=== PATIENT | female | born 1935 | race Caucasian/White ===

== ENCOUNTER 2017-08-10 13:51 | Inpatient (IN) | payer MEDICARE ==
[~2017-08-10] VITALS: Ht 158.8 cm; Wt 64.3 kg
[~2017-08-10 13:51] MED LIST: ASPI81 PO; CALTTAB PO; COZA100T PO; CRANCAP11 PO; ESCI20TA PO; ESTR42.5V PV; FISH1000 PO; GARL500T PO; GLUC500C3 PO; GLUCTAB47 PO; IBUP1TAB7 PO; KONS520C PO; OMEP20TA39 PO; SIMV20 PO; TAB-TAB PO; TOPR50TA PO; VITA-13 PO
[2017-08-10 13:59] VITALS: BP 124/68; PULSE 80; RESP 18; TEMP 98.9; O2SAT 98
[2017-08-10] MEDS ORDERED: CEPH-460 PO (14:14)
[2017-08-10] MEDS ORDERED: METO50TA PO (14:19)
[2017-08-10] MEDS ORDERED: LACTCAP8 PO (14:19)
[2017-08-10] MEDS ORDERED: ASPI81CH6 CHEW (14:19)
[2017-08-10] MEDS ORDERED: GLUC500T4 PO (14:19)
[2017-08-10] MEDS ORDERED: LOSA50TA PO (14:19)
[2017-08-10] MEDS ORDERED: FISHCAP4 PO (14:19)
[2017-08-10] MEDS ORDERED: VITA500T83 PO (14:19)
[2017-08-10] MEDS ORDERED: RED1CAP4 PO (14:19)
[2017-08-10] MEDS ORDERED: RANI150T PO (14:19)
[2017-08-10] MEDS ORDERED: ESCI20TA PO (14:19)
[2017-08-10] MEDS ORDERED: AZTREONAM INJ 2,000 MG in SODIUM CHLORIDE 0.9% INJ 100 ML IV STA (14:33)
[2017-08-10] MEDS ORDERED: VANCOMYCIN INJ 900 MG in SODIUM CHLOR 0.9% 250 ML INJ 250 ML IV STA (14:33)
[2017-08-10] MEDS ORDERED: metroNIDAZOLE 500 MG INJ 100 ML IV STA (14:33)
--- NOTE | 2017-08-10 14:37 | PD ---
HPI Chief Complaint: Edema Time Seen by Provider: 14:24 Travel History International Travel<30 days: No Contact w/Intl Traveler<30days: No Traveled to known affect area: No History of Present Illness HPI This 82-year-old female is complaining of swelling and redness of the right leg. 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 She's had a chronic wound at the site of the surgery. She has been going to the wound care center. Over the last couple of days she developed redness the lower leg around the site of the surgery. She had some fever yesterday but not today. She developed a blister yesterday she has no history of DVT. She was started on Keflex yesterday and it has not helped PFSH Past Medical History Hx Anticoagulant Therapy: Yes (BABY ASA DAILY) Autoimmune Disease: Yes (OSTEOPENIA) Anxiety: Yes Cancer: Yes (SKIN, MELANOMA FOOT) Cardiovascular Problems: No High Cholesterol: Yes Cerebrovascular Accident: No Diminished Hearing: No Endocrine: No Gastrointestinal Disorders: Yes (GERD, CONSTIPATION) GERD: Yes Genitourinary: Yes (URINARY INCONTINENCE) Hepatitis: No Hiatal Hernia: No Hypertension: Yes Immune Disorder: No Musculoskeletal: Yes (ARTHRITIS, OSTEOPOROSIS) Neurologic: No Psychiatric: No Reproductive: No Respiratory: No Immunizations Current: Yes Thyroid Disease: No Influenza Vaccination: Yes PNEUMOCCOCAL Vaccine (Year): 2009 ?: Not Menopausal: Yes Past Surgical History Abdominal Surgery: No AICD: No Cardiac Surgery: No Ear Surgery: No Endocrine Surgery: No Eye Surgery: No Genitourinary Surgery: No Gynecologic Surgery: No Joint Replacement: No Pacemaker: No Thoracic Surgery: No Tonsillectomy: Yes Other Surgery: Yes (cyst breast removed ) Social History Alcohol Use: No Tobacco Use: No Substance Use: No Allergies-Medications (Allergen,Severity, Reaction): Coded Allergies: amoxicillin (Unverified Allergy, Unknown, 08/10/17) penicillin G (Unverified Allergy, Unknown, PT UNSURE OF REACTION, 08/10/17) Reported Meds & Prescriptions Reported Meds & Active Scripts Active Ibuprofen 800 Mg Tab 800 Mg PO Q8H PRN Reported Pred Forte Opth 1% (Prednisolone Acetate Opth 1%) 1% Susp 1 Drop LEFT EYE QID Bromsite (Bromfenac Sodium (Ophth)) 0.075 % Velasquez 1 Drop LEFT EYE BID Glucosamine-Chondroitin 500-400 Mg Tab 1 Tab PO DAILY Vitamin C ER (Ascorbic Acid) 500 Mg Ok 1,000 Mg PO DAILY Red Yeast Rice (Red Yeast Rice Extract) 600 Mg Cap 1 Tab PO DAILY Probiotic (Lactobacillus Acidophilus) 10 Billion Cell Cap 1 Cap PO DAILY Fish Oil + D3 (Fish Oil-Cholecalciferol) 1,200-1,000 Mg-Unit Cap 1 Cap PO DAILY Aspirin Low Dose (Aspirin) 81 Mg Chew 81 Mg CHEW DAILY Ranitidine (Ranitidine HCl) 150 Mg Tab 150 Mg PO BID Metoprolol Tartrate 50 Mg Tab 50 Mg PO BID Losartan (Losartan Potassium) 50 Mg Tab 50 Mg PO DAILY Escitalopram (Escitalopram Oxalate) 20 Mg Tab 20 Mg PO DAILY Keflex (Cephalexin) 500 Mg Cap 500 Mg PO Q12H Review of Systems General / Constitutional: Positive: Fever, Chills Eyes: No: Diploplia, Blurred Vision HENT: No: Headaches, Vertigo Cardiovascular: No: Chest Pain or Discomfort, Palpitations Respiratory: No: Cough, Shortness of Breath Gastrointestinal: No: Nausea, Vomiting Genitourinary: No: Urgency, Frequency Musculoskeletal: Positive: Edema, No: Myalgias Skin: Positive Rash Neurologic: No: Weakness, Dizziness Psychiatric: No: Anxiety Endocrine: No: Heat Intolerance Hematologic/Lymphatic: No: Easy Bruising Physical Exam Narrative GENERAL: Well-developed female SKIN: Focused skin assessment warm/dry. HEAD: Atraumatic. Normocephalic. EYES: Pupils equal and round. No scleral icterus. No injection or drainage. ENT: No nasal bleeding or discharge. Mucous membranes pink and moist. NECK: Trachea midline. No JVD. CARDIOVASCULAR: Regular rate and rhythm. No murmur appreciated. RESPIRATORY: No accessory muscle use. Clear to auscultation. Breath sounds equal bilaterally. GASTROINTESTINAL: Abdomen soft, non-tender, nondistended. Hepatic and splenic margins not palpable. MUSCULOSKELETAL: Examination of the right lower leg shows erythema extending about [facility] up the lower extremity. There is an area of blistering on the medial aspect of the foot. There is a surgical wound on the lateral aspect of the right leg NEUROLOGICAL: Awake and alert. No obvious cranial nerve deficits. Motor grossly within normal limits. Normal speech. PSYCHIATRIC: Appropriate mood and affect; insight and judgment normal. Data Data Last Documented VS Vital Signs Date Time Temp Pulse Resp B/P (MAP) Pulse Ox O2 Delivery O2 Flow Rate FiO2 08/10/17 14:58 77 18 112/59 (76) 97 Room Air 08/10/17 13:59 98.9 Orders Orders Sepsis Workup Initiated (08/10/17 ) Complete Blood Count With Diff (08/10/17 14:33) Comprehensive Metabolic Panel (08/10/17 14:33) Lactic Acid Sepsis Protocol (08/10/17 14:33) Urinalysis - C+S If Indicated (08/10/17 14:33) Blood Culture (08/10/17 14:33) Blood Glucose (08/10/17 14:33) Ecg Monitoring (08/10/17 14:33) Iv Access Insert/Monitor (08/10/17 14:33) Oximetry (08/10/17 14:33) Oxygen Administration (08/10/17 14:33) Aztreonam Inj (Azactam Inj) (08/10/17 14:33) Metronidazole 500 Mg Inj (Flagyl 500 Mg (08/10/17 14:33) Vancomycin Inj (Vancomycin Inj) (08/10/17 14:33) Us Leg Venous Doppler (08/10/17 14:37) Sodium Chlor 0.9% 1000 Ml Inj (Ns 1000 M (08/10/17 15:30) Potassium Chloride (Kcl) (08/10/17 15:45) Labs Laboratory Tests Test 08/10/17 14:35 White Blood Count 10.3 TH/MM3 Red Blood Count 3.61 MIL/MM3 Hemoglobin 10.4 GM/DL Hematocrit 31.9 % Mean Corpuscular Volume 88.5 FL Mean Corpuscular Hemoglobin 28.7 PG Mean Corpuscular Hemoglobin Concent 32.5 % Red Cell Distribution Width 14.0 % Platelet Count 214 TH/MM3 Mean Platelet Volume 9.6 FL Neutrophils (%) (Auto) 90.5 % Lymphocytes (%) (Auto) 4.0 % Monocytes (%) (Auto) 4.5 % Eosinophils (%) (Auto) 0.8 % Basophils (%) (Auto) 0.2 % Neutrophils # (Auto) 9.3 TH/MM3 Lymphocytes # (Auto) 0.4 TH/MM3 Monocytes # (Auto) 0.5 TH/MM3 Eosinophils # (Auto) 0.1 TH/MM3 Basophils # (Auto) 0.0 TH/MM3 CBC Comment AUTO DIFF Blood Urea Nitrogen 25 MG/DL Creatinine 0.88 MG/DL Random Glucose 127 MG/DL Total Protein 6.9 GM/DL Albumin 2.5 GM/DL Calcium Level 8.5 MG/DL Alkaline Phosphatase 74 U/L Aspartate Amino Transf (AST/SGOT) 19 U/L Alanine Aminotransferase (ALT/SGPT) 22 U/L Total Bilirubin 0.5 MG/DL Sodium Level 131 MEQ/L Potassium Level 3.4 MEQ/L Chloride Level 97 MEQ/L Carbon Dioxide Level 27.2 MEQ/L Anion Gap 7 MEQ/L Estimat Glomerular Filtration Rate 62 ML/MIN Lactic Acid Level 1.6 mmol/L [facility] Medical Decision Making Medical Screen Exam Complete: Yes Emergency Medical Condition: Yes Medical Record Reviewed: Yes Differential Diagnosis Differential includes cellulitis, DVT Narrative Course Appearance is consistent with cellulitis. Ultrasound will be done to rule out DVT. Going to initiate antibiotics. She indicates an allergy to amoxicillin and penicillin and given aztreonam, Flagyl and vancomycin. She has been started on Keflex yesterday and it progressed in spite of the Keflex. Ultrasound is read as negative for DVT. Her white count is 10,000. Her lactate is normal. She is an outpatient treatment failure Diagnosis Primary Impression: Cellulitis of right leg Admitting Information Admitting Physician Requests: Admit Cy Welch MD Aug 10, 2017 14:37
[2017-08-10 14:58] VITALS: BP 112/59; PULSE 77; RESP 18; O2SAT 97
[2017-08-10 15:01] LABS: CHLORIDE 97 MEQ/L (98-107); SODIUM (NA) 131 MEQ/L (136-145)
[2017-08-10 15:04] LABS: CALCIUM 8.5 MG/DL (8.5-10.1)
[2017-08-10 15:05] LABS: ALBUMIN 2.5 GM/DL (3.4-5.0); BICARBONATE 27.2 MEQ/L (21.0-32.0); BLOOD UREA NITROGEN 25 MG/DL (7-18); GLUCOSE,RANDOM 127 MG/DL (74-106)
[2017-08-10 15:08] LABS: ALT (GPT) 22 U/L (10-53); AST (GOT) 19 U/L (15-37); CREATININE 0.88 MG/DL (0.50-1.00); GLOMERULAR FILTRATION RATE 62 ML/MIN (>89)
--- NOTE | 2017-08-10 15:08 | RADRPT ---
EXAM DATE/TIME: 08/10/2017 14:43 [place] COMPARISON: No previous studies available for comparison. INDICATIONS : Right leg pain and redness. MEDICAL HISTORY : Hypercholesterolemia. Hypertension. Gastroesophageal reflux disease. Osteoporosis. UTI. Diabetes. Skin cancer. MRSA. Osteopenia. SURGICAL HISTORY : Tonsillectomy. ENCOUNTER: Initial ACUITY: 4 - 6 days PAIN SCORE: 5/10 LOCATION: Right leg. TECHNIQUE: Venous ultrasound of the leg was performed from the inguinal ligament to the proximal calf. Real-manjinder e, color Doppler and spectral tracing, compression and augmentation techniques were used. FINDINGS: There is normal compressibility of the deep venous system from the inguinal region to the proximal ca lf. No echogenic clot is seen in the lumen of the common femoral, femoral, popliteal, and posterior tibial veins. There is a normal response of the venous system to proximal and distal augmentation an d respiration. CONCLUSION: 1. Negative for deep venous thrombosis. Som Boyd MD on August 10, 2017 at 15:07 Board Certified Radiologist. This report was verified electronically.
[2017-08-10 15:09] LABS: TOTAL BILIRUBIN ADULT 0.5 MG/DL (0.2-1.0); TOTAL PROTEIN 6.9 GM/DL (6.4-8.2)
[2017-08-10 15:11] LABS: ALKALINE PHOSPHATASE 74 U/L (45-117)
[2017-08-10] MEDS ORDERED: PRED1SUS LEFT EYE (15:35)
[2017-08-10] MEDS ORDERED: [UNRECOGNIZED DRUG - CODE] LEFT EYE (15:35)
[2017-08-10] MEDS ORDERED: POTASSIUM CHLORIDE 20 MEQ CONTROLLED RELEASE TAB PO ONE (15:45)
[2017-08-10] MEDS: SODIUM CHLOR 0.9% 1000 ML INJ 1,000 ML IV SCH (15:56)
[2017-08-10 16:00] LABS: AUTOMATED NEUTROPHIL # 9.3 TH/MM3 (1.8-7.7); BASOPHIL % 0.2 % (0.0-2.0); EOSINOPHIL # 0.1 TH/MM3 (0-0.4); EOSINOPHIL % 0.8 % (0.0-4.0); HEMATOCRIT 31.9 % (35.0-46.0); HEMOGLOBIN 10.4 GM/DL (11.6-15.3); LYMPHOCYTE # 0.4 TH/MM3 (1.0-4.8); MEAN CELL VOLUME 88.5 FL (80.0-100.0); MEAN CORPUSCULAR HEMOGLOBIN 28.7 PG (27.0-34.0); MEAN CORPUSCULAR HGB CONC 32.5 % (32.0-36.0); MEAN PLATELET VOLUME 9.6 FL (7.0-11.0); MONO % 4.5 % (0.0-8.0); MONOCYTE # 0.5 TH/MM3 (0-0.9); NEUT % 90.5 % (16.0-70.0); PLATELET COUNT 214 TH/MM3 (150-450); RED BLOOD COUNT 3.61 MIL/MM3 (4.00-5.30); WHITE BLOOD COUNT 10.3 TH/MM3 (4.0-11.0)
[2017-08-10 16:38] VITALS: BP 107/53; PULSE 70; RESP 18; O2SAT 97
[2017-08-10] MEDS ORDERED: MAGNESIUM HYDROXIDE SUSP 30 ML CUP PO PRN (16:45)
[2017-08-10] MEDS ORDERED: ONDANSETRON HCL 4 MG/2 ML VIAL IVP PRN (16:45)
[2017-08-10] MEDS ORDERED: SODIUM CHLORIDE 0.9% FLUSH 10 ML FLUSH IV FLUSH PRN (16:45)
[2017-08-10] MEDS ORDERED: Vancomycin Consult Pharmacy 1 EA OTHER SCH (16:45)
[2017-08-10] MEDS ORDERED: NALOXONE HCL 0.4 MG/ML AMP IV PUSH PRN (16:45)
[2017-08-10] MEDS ORDERED: ACETAMINOPHEN 325 MG TAB PO PRN (16:45)
--- NOTE | 2017-08-10 16:51 | HHI.HP ---
[facility] Service [place] [facility] Primary Care Physician Jose Alberto Knight MD Admission Diagnosis CELLULITIS R LEG Diagnoses: Chief Complaint: Right leg pain and swelling Travel History International Travel<30 Days: No Contact w/Intl Traveler <30 Da: No Traveled to Known Affected Are: No History of Present Illness Patient is an 82-year-old female with an acute episode of right leg pain and swelling which was severe enough to come to the emergency room. The pain occurred 2 days ago and she called her primary care doctor and did receive a prescription for Keflex but noted that increasing pain continued and she developed a bullous lesion in the medial ankle. She has no history of DVTs ultrasounds here been negative. Patient has been in wound care clinic with a right lateral shallow wound that appears to be healing quite well otherwise. The pain is intense and improved with elevation. She reports fevers and chills at home. Here she has been hypotensive. Patient is admitted for acute right lower show any infection with failed outpatient therapy Review of Systems Constitutional: COMPLAINS OF: Fever, Chills, DENIES: Diaphoretic episodes, Fatigue, Weight gain, Weight loss, Dizziness, Change in appetite, Night Sweats Endocrine: DENIES: Abnorml menstrual pattern, Heat/cold intolerance, Polydipsia , Polyuria, Polyphagia Eyes: DENIES: Blurred vision, Diplopia, Eye inflammation, Eye pain, Vision loss , Photosensitivity, Double Vision Ears, nose, mouth, throat: DENIES: Tinnitus, Hearing loss, Vertigo, Nasal discharge, Oral lesions, Throat pain, Hoarseness, Ear Pain, Running Nose, Epistaxis, Sinus Pain, Toothache, Odynophagia Respiratory: DENIES: Apneas, Cough, Snoring, Wheezing, Hemoptysis, Sputum production, Shortness of breath Cardiovascular: DENIES: Chest pain, Palpitations, Syncope, Dyspnea on Exertion , PND, Lower Extremity Edema, Orthopnea, Claudication Gastrointestinal: DENIES: Abdominal pain, Black stools, Bloody stools, Constipation, Diarrhea, Nausea, Vomiting, Difficulty Swallowing, Anorexia Genitourinary: DENIES: Abnormal vaginal bleeding, Dysmenorrhea, Dyspareunia, Sexual dysfunction, Urinary frequency, Urinary incontinence, Urgency, Hematuria , Dysuria, Nocturia, Vaginal discharge Musculoskeletal: COMPLAINS OF: Joint pain Integumentary: DENIES: Abnormal pigmentation, Pruritus, Rash, Nail changes, Breast masses, Breast skin changes, Nipple discharge Hematologic/lymphatic: DENIES: Bruising, Lymphadenopathy Immunologic/allergic: DENIES: Eczema, Urticaria Neurologic: DENIES: Abnormal gait, Headache, Localized weakness, Paresthesias, Seizures, Speech Problems, Tremor, Poor Balance Psychiatric: COMPLAINS OF: Anxiety, DENIES: Confusion, Mood changes, Depression , Hallucinations, Agitation, Suicidal Ideation, Homicidal Ideation, Delusions Except as stated in HPI: all other systems reviewed are Neg Past Family Social History Past Medical History Skin cancer removed 3 months ago Hypertension Anxiety GERD Constipation Hyperlipidemia Past Surgical History Skin cancer removed 3 months ago Breast surgery Reported Medications Reviewed in the EMR Allergies: Coded Allergies: amoxicillin (Unverified Allergy, Unknown, 08/10/17) penicillin G (Unverified Allergy, Unknown, PT UNSURE OF REACTION, 08/10/17) Active Ordered Medications Reviewed in the EMR Family History Mother from a stroke at 65, father from gastrointestinal troubles Social History Lives with her , no tobacco or alcohol dependency Physical Exam Vital Signs Vital Signs Date Time Temp Pulse Resp B/P (MAP) Pulse Ox O2 Delivery O2 Flow Rate FiO2 08/10/17 16:38 70 18 107/53 (71) 97 Room Air 08/10/17 14:58 77 18 112/59 (76) 97 Room Air 08/10/17 14:58 97 Room Air 08/10/17 13:59 98.9 80 18 124/68 (86) 98 Physical Exam GENERAL: This is a well-nourished, well-developed patient, in no apparent distress. SKIN: No rashes, ecchymoses or lesions. Cool and dry. HEAD: Atraumatic. Normocephalic. No temporal or scalp tenderness. EYES: Pupils equal round and reactive. Extraocular motions intact. No scleral icterus. No injection or drainage. ENT: Nose without bleeding, purulent drainage or septal hematoma. Throat without erythema, tonsillar hypertrophy or exudate. Uvula midline. Airway patent. NECK: Trachea midline. No JVD or lymphadenopathy. Supple, nontender, no meningeal signs. CARDIOVASCULAR: Regular rate and rhythm without murmurs, gallops, or rubs. RESPIRATORY: Clear to auscultation. Breath sounds equal bilaterally. No wheezes , rales, or rhonchi. GASTROINTESTINAL: Abdomen soft, non-tender, nondistended. No hepato-splenomegaly , or palpable masses. No guarding. MUSCULOSKELETAL: Right lower extremity is extremely edematous and tender with shallow lateral quarter-sized ulcer with clean edges and clean base, the medial malleoli has a large half-dollar size bulla with surrounding erythema. Other 3 Extremities without clubbing, cyanosis, or edema. No joint tenderness, effusion , or edema noted. No calf tenderness. Negative Homans sign bilaterally. NEUROLOGICAL: Awake and alert. Cranial nerves II through XII intact. Motor and sensory grossly within normal limits. Five out of 5 muscle strength in all muscle groups. Normal speech. Laboratory Laboratory Tests Test 08/10/17 14:35 White Blood Count 10.3 Red Blood Count 3.61 Hemoglobin 10.4 Hematocrit 31.9 Mean Corpuscular Volume 88.5 Mean Corpuscular Hemoglobin 28.7 Mean Corpuscular Hemoglobin Concent 32.5 Red Cell Distribution Width 14.0 Platelet Count 214 Mean Platelet Volume 9.6 Neutrophils (%) (Auto) 90.5 Lymphocytes (%) (Auto) 4.0 Monocytes (%) (Auto) 4.5 Eosinophils (%) (Auto) 0.8 Basophils (%) (Auto) 0.2 Neutrophils # (Auto) 9.3 Lymphocytes # (Auto) 0.4 Monocytes # (Auto) 0.5 Eosinophils # (Auto) 0.1 Basophils # (Auto) 0.0 CBC Comment AUTO DIFF Blood Urea Nitrogen 25 Creatinine 0.88 Random Glucose 127 Total Protein 6.9 Albumin 2.5 Calcium Level 8.5 Alkaline Phosphatase 74 Aspartate Amino Transf (AST/SGOT) 19 Alanine Aminotransferase (ALT/SGPT) 22 Total Bilirubin 0.5 Sodium Level 131 Potassium Level 3.4 Chloride Level 97 Carbon Dioxide Level 27.2 Anion Gap 7 Estimat Glomerular Filtration Rate 62 Lactic Acid Level 1.6 Date/Time Source Procedure Growth Status 08/10/17 14:43 Blood Peripheral Aerobic Blood Culture Pending Received 08/10/17 14:43 Blood Peripheral Anaerobic Blood Culture Pending Received Result Diagram: 08/10/17 1435 08/10/17 1435 Imaging Last Impressions Lower Extremity Ultrasound 08/10/17 1437 Signed Impressions: Service Date/Time: Thursday, August 10, 2017 14:43 - CONCLUSION: 1. Negative for deep venous thrombosis. Som Boyd MD Caprinamanda VTE Risk Assessment Caprini VTE Risk Assessment: Mod/High Risk (score >= 2) Caprini Risk Assessment Model Point Value = 1 Point Value = 2 Point Value = 3 Point Value = 5 Age 41-60 Minor surgery BMI > 25 kg/m2 Swollen legs Varicose veins or History of unexplained or recurrent spontaneous Oral contraceptives or hormone replacement Sepsis (< 1 month) Serious lung disease, including pneumonia (< 1 month) Abnormal pulmonary function Acute myocardial infarction Congestive heart failure (< 1 month) History of inflammatory bowel disease Medical patient at bed rest Age 61-74 Arthroscopic surgery Major open surgery (> 45 min) Laparoscopic surgery (> 45 min) Malignancy Confined to bed (> 72 hours) Immobilizing plaster cast Central venous access Age >= 75 History of VTE Family history of VTE Factor V Leiden Prothrombin [id number] Lupus anticoagulant Anticardiolipin antibodies Elevated serum homocysteine Heparin-induced thrombocytopenia Other congenital or acquired thrombophilia Stroke (< 1 month) Elective arthroplasty Hip, pelvis, or leg fracture Acute spinal cord injury (< 1 month) Prophylaxis Regimen Total Risk Factor Score Risk Level Prophylaxis Regimen 0-1 Low Early ambulation 2 Moderate Order ONE of the following: *Sequential Compression Device (SCD) *Heparin 5000 units SQ BID 3-4 Higher Order ONE of the following medications: *Heparin 5000 units SQ TID *Enoxaparin/Lovenox 40 mg SQ daily (WT < 150 kg, CrCl > 30 mL/min) *Enoxaparin/Lovenox 30 mg SQ daily (WT < 150 kg, CrCl > 10-29 mL/min) *Enoxaparin/Lovenox 30 mg SQ BID (WT < 150 kg, CrCl > 30 mL/min) AND/OR *Sequential Compression Device (SCD) 5 or more Highest Order ONE of the following medications: *Heparin 5000 units SQ TID (Preferred with Epidurals) *Enoxaparin/Lovenox 40 mg SQ daily (WT < 150 kg, CrCl > 30 mL/min) *Enoxaparin/Lovenox 30 mg SQ daily (WT < 150 kg, CrCl > 10-29 mL/min) *Enoxaparin/Lovenox 30 mg SQ BID (WT < 150 kg, CrCl > 30 mL/min) AND *Sequential Compression Device (SCD) Assessment and Plan Problem List: (1) HTN (hypertension) ICD Code: I10 - Essential (primary) hypertension Plan: Patient has been hypotensive and we will resume her medications when her blood pressure has improved (2) Cellulitis of right leg ICD Code: L03.115 - Cellulitis of right lower limb Status: Acute Plan: Etiology unclear, patient has failed outpatient therapy at this point will need to be admitted for IV antibiotics for severe lower extremity infection. She was hypotensive and febrile at home We'll continue with IV is active and add vancomycin, podiatry consult pending Physician Certification 2 Midnight Certification Type: Admission for Inpatient Services Order for Inpatient Services The services are ordered in accordance with Medicare regulations or non- Medicare payer requirements, as applicable. In the case of services not specified as inpatient-only, they are appropriately provided as inpatient services in accordance with the 2-midnight benchmark. Estimated LOS (days): 3 3 days is the estimated time the patient will need to remain in the hospital, assuming treatment plan goals are met and no additional complications. Post-Hospital Plan: Home Hamida Corado MD Aug 10, 2017 16:51
[2017-08-10] MEDS ORDERED: POTASSIUM CHLORIDE 10 MEQ CONTROLLED RELEASE TAB PO ONE (17:00)
[2017-08-10 17:55] VITALS: BP 119/59; PULSE 99; RESP 20; TEMP 99; O2SAT 97
--- NOTE | 2017-08-10 19:32 | PD.CONS ---
History of Present Illness Service Podiatry Consult Requested By Reason for Consult Right ankle infection Primary Care Physician Jose Alberto Knight MD Diagnoses: History of Present Illness Patient is an 82-year-old female with an acute episode of right leg pain and swelling. She was given keflex and it continued to digress, with blister on the inside of the ankle forming. She had skin cancer removed with a wound to the lateral calf that did not heal yet, otherwise no trauma to the leg is noted. Past Family Social History Allergies: Coded Allergies: amoxicillin (Unverified Allergy, Unknown, 08/10/17) penicillin G (Unverified Allergy, Unknown, PT UNSURE OF REACTION, 08/10/17) Past Medical History Skin cancer Hypertension Anxiety GERD Constipation Hyperlipidemia Past Surgical History Skin cancer removed 3 months ago Breast surgery Active Ordered Medications Current Medications Medications (Trade) Dose Ordered Sig/Brijesh Route Start Time Stop Time Status Last Admin Sodium Chloride 1,000 ml @ 100 mls/hr Q10H IV 08/10/17 15:30 08/10/17 15:56 (NS Flush) 2 ml UNSCH PRN IV FLUSH 08/10/17 16:45 (NS Flush) 2 ml BID IV FLUSH 08/10/17 21:00 (Tylenol) 650 mg Q4H PRN PO 08/10/17 16:45 (Zofran Inj) 4 mg Q6H PRN IVP 08/10/17 16:45 (Narcan Inj) 0.4 mg UNSCH PRN IV PUSH 08/10/17 16:45 (Milk Of Magnesia Liq) 30 ml Q12H PRN PO 08/10/17 16:45 Aztreonam 1000 mg/ Sodium Chloride 100 ml @ 200 mls/hr Q6HR IV 08/11/17 00:00 Pharmacy Profile Note 0 ml @ 0 mls/hr UNSCH OTHER 08/10/17 16:45 Vancomycin HCl 1000 mg/Sodium Chloride 250 ml @ 250 mls/hr DAILY@1600 IV 08/11/17 16:00 (Lexapro) 20 mg DAILY PO 08/11/17 09:00 (Lactinex) 1 tab DAILY PO 08/11/17 09:00 (Cozaar) 50 mg DAILY PO 08/11/17 09:00 (Lopressor) 50 mg BID PO 08/11/17 09:00 (Pred Forte 1% Opth Susp) 1 drop QID LEFT EYE 08/10/17 18:00 Patient Own Medication PT OWN MED: (Bromfe... BID LEFT EYE 08/10/17 21:00 Future Hold (Pepcid) 10 mg BID PO 08/10/17 21:00 (Lovenox Inj) 40 mg Q24H SQ 08/10/17 18:00 ([place] 7.5-325 Mg) 1 tab Q6H PRN PO 08/10/17 17:00 (Miralax) 17 gm DAILY PO 08/11/17 09:00 Miscellaneous Information SPECIFIC LAB TO BE DRAWN:VANCO TROUGH DATE TO... ONCE ONCE .XX 08/13/17 15:45 08/13/17 15:46 Family History Mother from a stroke at 65, father from gastrointestinal troubles Social History Lives with her , no tobacco or alcohol dependency Physical Exam Vital Signs Vital Signs Date Time Temp Pulse Resp B/P (MAP) Pulse Ox O2 Delivery O2 Flow Rate FiO2 08/10/17 17:55 99.0 99 20 119/59 (79) 97 08/10/17 17:32 08/10/17 16:38 70 18 107/53 (71) 97 Room Air 08/10/17 14:58 77 18 112/59 (76) 97 Room Air 08/10/17 14:58 97 Room Air 08/10/17 13:59 98.9 80 18 124/68 (86) 98 Physical Exam GENERAL: This is a well-nourished, well-developed patient, in no apparent distress. Right lateral ankle with ulceration apparently from skin cancer removal with erythema and edema from rearfoot and ankle to mid-calf. No purulence from this wound, however, there is bulla noted to medial R ankle at medial achilles tendon insertion area, that appears to be fluid-filled and not purulent material. Tenderness present to calf. Increased skin temperature. No ascending erythema noted. Neurovascularly intact RLE. Laboratory Laboratory Tests Test 08/10/17 14:35 White Blood Count 10.3 Red Blood Count 3.61 Hemoglobin 10.4 Hematocrit 31.9 Mean Corpuscular Volume 88.5 Mean Corpuscular Hemoglobin 28.7 Mean Corpuscular Hemoglobin Concent 32.5 Red Cell Distribution Width 14.0 Platelet Count 214 Mean Platelet Volume 9.6 Neutrophils (%) (Auto) 90.5 Lymphocytes (%) (Auto) 4.0 Monocytes (%) (Auto) 4.5 Eosinophils (%) (Auto) 0.8 Basophils (%) (Auto) 0.2 Neutrophils # (Auto) 9.3 Lymphocytes # (Auto) 0.4 Monocytes # (Auto) 0.5 Eosinophils # (Auto) 0.1 Basophils # (Auto) 0.0 CBC Comment AUTO DIFF Differential Comment AUTO DIFF CONFIRMED Blood Urea Nitrogen 25 Creatinine 0.88 Random Glucose 127 Total Protein 6.9 Albumin 2.5 Calcium Level 8.5 Alkaline Phosphatase 74 Aspartate Amino Transf (AST/SGOT) 19 Alanine Aminotransferase (ALT/SGPT) 22 Total Bilirubin 0.5 Sodium Level 131 Potassium Level 3.4 Chloride Level 97 Carbon Dioxide Level 27.2 Anion Gap 7 Estimat Glomerular Filtration Rate 62 Lactic Acid Level 1.6 Date/Time Source Procedure Growth Status 08/10/17 14:43 Blood Peripheral Aerobic Blood Culture Pending Received 08/10/17 14:43 Blood Peripheral Anaerobic Blood Culture Pending Received Result Diagram: 08/10/17 1435 08/10/17 1435 Imaging Ordering Xray and MRI of R ankle today. Last 72 hours Impressions Lower Extremity Ultrasound 08/10/17 1437 Signed Impressions: Service Date/Time: Thursday, August 10, 2017 14:43 - CONCLUSION: 1. Negative for deep venous thrombosis. Som Boyd MD Assessment and Plan Assessment and Plan Cellulitis right ankle. Patient consented to bedside incision and drainage. Medial ankle bulla addressed and incised with #15 blade and culture taken of drainage. Wound cleansed and compression bandage applied RLE. Await culture Right ankle to guide antibiotics. Ordering Xray and MRI Right ankle Indira Isabel DPM Aug 10, 2017 19:32
[2017-08-10 20:00] VITALS: BP 124/58; PULSE 107; RESP 16; TEMP 99.6; O2SAT 98
[2017-08-10] MEDS: ACETAMINOPHEN/HYDROcodone 325 MG/7.5 MG TAB PO PRN (20:14)
[2017-08-10] MEDS: FAMOTIDINE 20 MG TAB PO SCH (20:14)
[2017-08-10] MEDS: ENOXAPARIN SODIUM 40 MG/0.4 ML SYRINGE SQ SCH (20:15)
[2017-08-10] MEDS: SODIUM CHLORIDE 0.9% FLUSH 10 ML FLUSH IV FLUSH SCH (20:16)
[2017-08-10] MEDS: AZTREONAM INJ 1,000 MG in SODIUM CHLORIDE 0.9% INJ 100 ML IV SCH ×2 (20:16→23:46)
[2017-08-10] MEDS ORDERED: BROMFENAC SODIUM LEFT EYE SCH (21:00)
[2017-08-10 21:07] LABS: BILIRUBIN, URINE NEG (NEG); BLOOD, URINE SMALL (NEG); GLUCOSE,URINE NEG (NEG); KETONE, URINE NEG (NEG); NITRITE,URINE NEG (NEG); URINE LEUKOCYTE ESTERASE NEG (NEG)
[2017-08-10 21:22] LABS: URINE COLOR YELLOW (YELLW/STRAW)
[2017-08-10 21:23] LABS: RENAL EPITHELIAL CELLS 0-5 /hpf; SQUAMOUS EPITHELIAL CELL URINE 0-5 /hpf (0-5); WHITE BLOOD CELL CLUMPS FEW
[2017-08-10 21:24] LABS: BACTERIA, URINE OCC /hpf
[2017-08-10] MEDS: prednisoLONE ACETATE 1% OPHT SUSP 5 ML BTL LEFT EYE SCH (21:28)
--- NOTE | 2017-08-10 22:02 | RADRPT ---
EXAM DATE/TIME: 08/10/2017 20:15 [facility] COMPARISON: No previous studies available for comparison. INDICATIONS : Right ankle infection. MEDICAL HISTORY : Hypercholesterolemia. Hypertension. Gastroesophageal reflux disease. Ost eoporosis. Diabetes. Skin cancer. Osteopenia. SURGICAL HISTORY : Tonsillectomy. ENCOUNTER: Initial ACUITY: 4 - 6 days PAIN SCORE: 6/10 LOCATION: Right ankle. FINDINGS: Diffuse soft tissue swelling in the ankle. Lucencies noted in the talus posteriorly. The mass structu res are intact. No acute fracture. CONCLUSION: 1. Diffuse soft tissue swelling with focal lucencies in the posterior talus which may reflect focal e rosive change. Ike Lugo MD on August 10, 2017 at 21:59 Board Certified Radiologist. This report was verified electronically.
[2017-08-11] VITALS: BP 118/60; PULSE 118; RESP 18; TEMP 99.1; O2SAT 93
[2017-08-11] MEDS ORDERED: ACETAMINOPHEN/HYDROcodone 325 MG/7.5 MG TAB PO ONE
[2017-08-11] MEDS ORDERED: AZTREONAM INJ 1,000 MG in SODIUM CHLORIDE 0.9% INJ 100 ML IV SCH ×2
[2017-08-11] MEDS ORDERED: FAMOTIDINE 20 MG TAB PO ONE (06:00)
[2017-08-11] MEDS: ACETAMINOPHEN/HYDROcodone 325 MG/7.5 MG TAB PO PRN ×2 (06:19→18:40)
[2017-08-11] MEDS: AZTREONAM INJ 1,000 MG in SODIUM CHLORIDE 0.9% INJ 100 ML IV SCH ×3 (06:19→17:42)
[2017-08-11] MEDS: SODIUM CHLOR 0.9% 1000 ML INJ 1,000 ML IV SCH ×3 (06:20→20:55)
[2017-08-11 07:52] LABS: AUTOMATED NEUTROPHIL # 9.4 TH/MM3 (1.8-7.7); BASOPHIL % 0.4 % (0.0-2.0); EOSINOPHIL # 0.1 TH/MM3 (0-0.4); EOSINOPHIL % 0.7 % (0.0-4.0); HEMATOCRIT 30.6 % (35.0-46.0); HEMOGLOBIN 10.5 GM/DL (11.6-15.3); LYMPHOCYTE # 0.6 TH/MM3 (1.0-4.8); MEAN CELL VOLUME 89.3 FL (80.0-100.0); MEAN CORPUSCULAR HEMOGLOBIN 30.5 PG (27.0-34.0); MEAN CORPUSCULAR HGB CONC 34.2 % (32.0-36.0); MEAN PLATELET VOLUME 9.5 FL (7.0-11.0); MONO % 4.9 % (0.0-8.0); MONOCYTE # 0.5 TH/MM3 (0-0.9); PLATELET COUNT 211 TH/MM3 (150-450); RED BLOOD COUNT 3.43 MIL/MM3 (4.00-5.30); RED CELL DISTRIBUTION WIDTH 14.6 % (11.6-17.2); WHITE BLOOD COUNT 10.6 TH/MM3 (4.0-11.0)
[2017-08-11 07:58] LABS: BICARBONATE 27.7 MEQ/L (21.0-32.0)
[2017-08-11 08:02] LABS: CREATININE 0.68 MG/DL (0.50-1.00)
[2017-08-11] MEDS: FAMOTIDINE 20 MG TAB PO SCH ×2 (08:47→20:54)
[2017-08-11] MEDS: ESCITALOPRAM OXALATE 20 MG TAB PO SCH (08:47)
[2017-08-11] MEDS: POLYETHYLENE GLYCOL 17 GM PKG PO SCH (08:47)
[2017-08-11] MEDS: SODIUM CHLORIDE 0.9% FLUSH 10 ML FLUSH IV FLUSH SCH ×2 (08:47→20:15)
[2017-08-11] MEDS: prednisoLONE ACETATE 1% OPHT SUSP 5 ML BTL LEFT EYE SCH ×4 (08:47→20:57)
[2017-08-11] MEDS: LACTOBACILLUS ACIDOPHILUS TAB PO SCH (08:47)
[2017-08-11] MEDS: METOPROLOL TARTRATE 50 MG TAB PO SCH ×2 (08:47→20:54)
[2017-08-11] MEDS: LOSARTAN 50 MG TAB PO SCH (08:47)
[2017-08-11] MEDS ORDERED: GADODIAMIDE PF 287 MG/ML 5 ML VIAL (for RAD MRI) IVCONTRAST ONE (11:00)
--- NOTE | 2017-08-11 11:48 | RADRPT ---
EXAM DATE/TIME: 08/11/2017 09:44 [facility] COMPARISON: ANKLE RIGHT COMPLETE ([id number]), August 10, 2017, 20:15. INDICATIONS : Celluitis CONTRAST: 11.5 cc Omniscan (gadodiamide) IV MEDICAL HISTORY : Hypercholesterolemia. Hypertension. Gastroesophageal reflux disease. SURGICAL HISTORY : Tonsillectomy. Cataracts Bilateral ENCOUNTER: Subsequent ACUITY: 2 day PAIN SCORE: 5/10 LOCATION: Right Ankle TECHNIQUE: Multiplanar, multisequence MRI examination was performed without contrast and after the intravenous a dministration of gadolinium. FINDINGS: There is prominent soft tissue swelling about the medial aspect of the ankle measuring up to 1.7 cm i n thickness. There is diffuse T2 prolongation and there is a cavity which measures 6 cm in length an d does not demonstrate enhancement, tracking within this area of soft tissue thickening. There is co nnection to the skin posterolateral. The appearance is characteristic of cellulitis with soft tissue abscess. There is also mild soft tissue swelling about the medial and posterior aspect of the ankle with homogeneous enhancement. In the posterior talus, there are 3 well-circumscribed cystic areas which extend to the posterior art icular facet and measure up to 9 mm in size. There is some peripheral enhancement in each of these c ystic areas, characteristic of subchondral cysts with associated inflammatory change. No effusion in the posterior articular facet. No signal abnormality seen in the marrow of the remainder of the oss eous structures of the ankle or hindfoot. No signal abnormalities in the medial or lateral tendons. CONCLUSION: 1. Cellulitis with soft tissue abscess on the medial side measuring in excess of 6 cm in superior/inf erior extent. There is also diffuse soft tissue inflammation about the posterior and medial soft tis sues. 2. Inflamed subchondral cysts in the calcaneus adjacent to the posterior articular facet. 3. No signal abnormalities to suggest osteomyelitis. Som Boyd MD on August 11, 2017 at 11:36 Board Certified Radiologist. This report was verified electronically.
[2017-08-11 12:47] VITALS: BP 119/72; PULSE 95; RESP 18; TEMP 96.6; O2SAT 94
--- NOTE | 2017-08-11 13:04 | HHI.PR ---
Subjective Remarks Patient seen in follow up for right foot infection better Objective Vitals Vital Signs Date Time Temp Pulse Resp B/P (MAP) Pulse Ox O2 Delivery O2 Flow Rate FiO2 08/11/17 12:47 96.6 95 18 119/72 (88) 94 08/11/17 00:00 99.1 118 18 118/60 (79) 93 08/10/17 20:00 99.6 107 16 124/58 (80) 98 08/10/17 17:55 99.0 99 20 119/59 (79) 97 08/10/17 17:32 08/10/17 16:38 70 18 107/53 (71) 97 Room Air 08/10/17 14:58 77 18 112/59 (76) 97 Room Air 08/10/17 14:58 97 Room Air 08/10/17 13:59 98.9 80 18 124/68 (86) 98 I/O 08/10/17 08/10/17 08/10/17 08/11/17 08/11/17 08/11/17 07:00 15:00 23:00 07:00 15:00 23:00 Intake Total 2779 ml 1279 ml Output Total 300 ml Balance 2479 ml 1279 ml Intake Oral 120 ml 180 ml IV Total 2659 ml 1099 ml Output Urine Total 300 ml # Voids 1 2 # Bowel Movements 0 Result Diagram: 08/11/17 0639 08/11/17 0639 Objective Remarks GENERAL: This is a well-nourished, well-developed patient, in no apparent distress. CARDIOVASCULAR: Regular rate and rhythm without murmurs, gallops, or rubs. RESPIRATORY: Clear to auscultation. Breath sounds equal bilaterally. No wheezes , rales, or rhonchi. GASTROINTESTINAL: Abdomen soft, non-tender, nondistended. Normal active bowel sounds MUSCULOSKELETAL: right foot swelling improved but table tender, s/p i and d, Extremities without clubbing, cyanosis, or edema. NEURO: Alert & Oriented x4 to person, place, time, situation. Moves all ext x4 A/P Problem List: (1) HTN (hypertension) ICD Code: I10 - Essential (primary) hypertension Plan: controlled continue on current meds (2) Cellulitis of right leg ICD Code: L03.115 - Cellulitis of right lower limb Status: Acute Plan: cultures pending We'll continue with IV azactam, podiatry consult appreciated s/p bedside i and d MRI concerning for abscess, may need further surgery d/w Podiatry Hamida Corado MD Aug 11, 2017 13:04
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
[2017-08-11] MEDS: VANCOMYCIN INJ 1,000 MG in SODIUM CHLOR 0.9% 250 ML INJ 250 ML IV SCH (16:29)
[2017-08-11 17:16] VITALS: BP 131/62; PULSE 105; RESP 18; TEMP 98.9; O2SAT 92
[2017-08-11] MEDS: ENOXAPARIN SODIUM 40 MG/0.4 ML SYRINGE SQ SCH (17:42)
[2017-08-11 20:00] VITALS: BP 125/62; PULSE 121; RESP 16; TEMP 100.1; O2SAT 91
[2017-08-11 21:45] VITALS: O2SAT 88
[2017-08-11 21:50] VITALS: O2SAT 91
[2017-08-12] VITALS (10 sets, daily range): BP systolic 102–142; BP diastolic 56–78; PULSE 74–103; RESP 16–20; TEMP 96.9–100.1; O2SAT 92–97
[2017-08-12] MEDS: AZTREONAM INJ 1,000 MG in SODIUM CHLORIDE 0.9% INJ 100 ML IV SCH ×4 (00:14→18:22)
[2017-08-12] MEDS ORDERED: METOPROLOL TARTRATE 50 MG TAB PO ONE (06:00)
[2017-08-12] MEDS ORDERED: FAMOTIDINE 20 MG TAB PO ONE (06:00)
[2017-08-12] MEDS ORDERED: BUPIVACAINE HCL PF 0.25% 30 ML VIAL ONE (06:19)
[2017-08-12] MEDS ORDERED: NEOMYCIN/POLYMYXIN 1 ML G.U. IRRIGANT ONE (06:19)
--- NOTE | 2017-08-12 08:23 | HHI.PR ---
Immediate Post Op Note Procedure Date: Aug 12, 2017 Pre Op Diagnosis: Abscess right ankle Ulcer right lateral calf Post Op Diagnosis: Same Surgeon: Indira Isabel DPM Childcare Administrator(s): Staff Procedure: 1. Incision and drainage of abscess right medial ankle 2. Excisional debridement of ulcer right lateral calf Findings: Right lateral calf wound 1.5 cm diameter and to subcutaneous tissue, 0.2cm depth. Does not communicate to lateral abscessed area. Excisional debridement with #15 blade and curette, followed by irrigation and dressing with xeroform, 4x4, cast padding, elise. Right medial ankle achilles tendon area with circular necrotic area. Incision made and purulent material released from abscessed area. Incision approx 3cm in length made proximally from the area along medial achilles. Upon exploration of abscess, it probed at 12o'clock, approximately 3cm. Did not communicate posteriorly or laterally. No necrotic tissue noted throughout, just on surface. Upon excisional debridement of necrotic tissue with #15 blade and rongeur, curettage of purulent debris, and irrigation with 9L NS, there remains a wound to medial achilles area 3cm x 3.5cm x 1cm depth with healthy bleeding base. Incision line closed with 2-0 nylon and wound packed with 1/2 '' iodoform gauze packing, xeroform, 4x4, cast padding, elise. Additional Information: Will have nursing apply wound vac tomorrow. Orders in chart. patient accounts manager consult ordered. Continue IV antibiotics and await deep cultures. Follow up with me in clinic in 2 weeks after discharge. Plan for likely graft when granulation tissue formation is adequate. WBAT Right in boot. Complications: None Specimen(s) removed: 1. culture right medial ankle abscess Estimated blood loss: Minimal Anesthesia: General Drains: None Tourniquet time (min at mmHg) n/a Patient to: PACU Patient Condition: Good Date/Time of Procedure: SEE SURGICAL CARE RECORD Indira Isabel DPM Aug 12, 2017 08:23
[2017-08-12] MEDS ORDERED: HYDROmorphone HCL PF 1 MG/ML VIAL IV PUSH ONE (10:00)
[2017-08-12] MEDS: SODIUM CHLORIDE 0.9% FLUSH 10 ML FLUSH IV FLUSH SCH ×2 (10:17→20:06)
[2017-08-12] MEDS: SODIUM CHLOR 0.9% 1000 ML INJ 1,000 ML IV SCH ×2 (10:17→20:15)
[2017-08-12] MEDS: prednisoLONE ACETATE 1% OPHT SUSP 5 ML BTL LEFT EYE SCH ×4 (10:18→20:15)
[2017-08-12] MEDS: METOPROLOL TARTRATE 50 MG TAB PO SCH (10:20)
[2017-08-12] MEDS: LACTOBACILLUS ACIDOPHILUS TAB PO SCH (10:20)
[2017-08-12] MEDS: POLYETHYLENE GLYCOL 17 GM PKG PO SCH (10:20)
[2017-08-12] MEDS: ESCITALOPRAM OXALATE 20 MG TAB PO SCH (10:20)
[2017-08-12] MEDS: LOSARTAN 50 MG TAB PO SCH (10:21)
[2017-08-12] MEDS: ACETAMINOPHEN/HYDROcodone 325 MG/7.5 MG TAB PO PRN (10:26)
--- NOTE | 2017-08-12 13:34 | HHI.PR ---
Subjective Remarks Patient seen and evaluated aShortly postoperatively from surgical I&D of right foot. Doing better but complaining of pain to 10 out of 10. No new events overnight otherwise Objective Vitals Vital Signs Date Time Temp Pulse Resp B/P (MAP) Pulse Ox O2 Delivery O2 Flow Rate FiO2 08/12/17 13:00 97.2 84 16 110/78 (89) 97 08/12/17 11:26 18 08/12/17 10:00 98.5 89 16 132/62 (85) 94 08/12/17 08:59 99.1 89 18 133/64 (87) 93 08/12/17 08:33 98.6 91 16 137/66 (89) 98 08/12/17 08:18 91 16 140/76 (97) 98 08/12/17 08:03 98.8 94 16 137/70 (92) 99 08/12/17 06:50 96 Nasal Cannula 2.00 08/12/17 06:40 96 Nasal Cannula 2 08/12/17 06:35 98.9 81 20 119/63 (81) 96 08/12/17 04:00 100.1 103 20 142/66 (91) 95 08/12/17 00:00 99.3 85 20 127/64 (85) 94 08/11/17 21:50 91 Nasal Cannula 2.00 08/11/17 21:45 88 21 08/11/17 20:00 100.1 121 16 125/62 (83) 91 08/11/17 17:16 98.9 105 18 131/62 (85) 92 I/O 08/11/17 08/11/17 08/11/17 08/12/17 08/12/17 08/12/17 07:00 15:00 23:00 07:00 15:00 23:00 Intake Total 1279 ml 800 ml 720 ml Output Total 700 ml 300 ml Balance 1279 ml 800 ml -700 ml 420 ml Intake Oral 180 ml 800 ml 120 ml IV Total 1099 ml Other 600 ml Output Urine Total 700 ml 300 ml # Voids 2 2 # Bowel Movements 0 0 Result Diagram: 08/11/1739 08/11/17 0639 Objective Remarks GENERAL: This is a well-nourished, well-developed patient, complaining of pain postoperatively from her foot CARDIOVASCULAR: Regular rate and rhythm without murmurs, gallops, or rubs. RESPIRATORY: Clear to auscultation. Breath sounds equal bilaterally. No wheezes , rales, or rhonchi. GASTROINTESTINAL: Abdomen soft, non-tender, nondistended. Normal active bowel sounds MUSCULOSKELETAL: Saleem wrap status post surgical I&D right lower extremity, other 3 extremities without clubbing, cyanosis, or edema. NEURO: Alert & Oriented x4 to person, place, time, situation. Moves all ext x4 A/P Problem List: (1) HTN (hypertension) ICD Code: I10 - Essential (primary) hypertension Plan: controlled Extra dose of metoprolol given today, will continue to hold metoprolol until blood pressure stabilizes (2) Cellulitis of right leg ICD Code: L03.115 - Cellulitis of right lower limb Status: Acute Plan: cultures pending We'll continue with IV azactam, podiatry consult appreciated s/p bedside i and d as well as surgical debridement Continue to follow with current antibiotics and podiatry on to manage wound VAC placement 08/13 Discharge Planning Pending progress and clearance from podiatry Hamida Corado MD Aug 12, 2017 13:34
[2017-08-12] MEDS: VANCOMYCIN INJ 1,000 MG in SODIUM CHLOR 0.9% 250 ML INJ 250 ML IV SCH (16:54)
[2017-08-12] MEDS: ENOXAPARIN SODIUM 40 MG/0.4 ML SYRINGE SQ SCH (18:22)
[2017-08-12] MEDS: FAMOTIDINE 20 MG TAB PO SCH (20:15)
[2017-08-13] VITALS: BP 114/71; PULSE 78; RESP 18; TEMP 98.2; O2SAT 99
[2017-08-13] MEDS: AZTREONAM INJ 1,000 MG in SODIUM CHLORIDE 0.9% INJ 100 ML IV SCH ×3 (00:15→12:34)
[2017-08-13] MEDS: SODIUM CHLOR 0.9% 1000 ML INJ 1,000 ML IV SCH ×2 (05:11→12:40)
[2017-08-13 09:30] VITALS: BP 142/79; PULSE 74; RESP 16; TEMP 96.9
[2017-08-13] MEDS: POLYETHYLENE GLYCOL 17 GM PKG PO SCH (09:33)
[2017-08-13] MEDS: LOSARTAN 50 MG TAB PO SCH (09:35)
[2017-08-13] MEDS: LACTOBACILLUS ACIDOPHILUS TAB PO SCH (09:35)
[2017-08-13] MEDS: FAMOTIDINE 20 MG TAB PO SCH ×2 (09:35→22:27)
[2017-08-13] MEDS: ESCITALOPRAM OXALATE 20 MG TAB PO SCH (09:35)
[2017-08-13] MEDS: prednisoLONE ACETATE 1% OPHT SUSP 5 ML BTL LEFT EYE SCH ×4 (09:41→22:28)
[2017-08-13] MEDS: SODIUM CHLORIDE 0.9% FLUSH 10 ML FLUSH IV FLUSH SCH ×2 (09:41→22:24)
--- NOTE | 2017-08-13 09:58 | HHI.PR ---
Subjective Remarks Nursing denies any deterioration since last night. Patient denies any pain while resting. Says she only has some pain when she bears weight on the foot. Says she does not want to go to rehab, says she takes care of her and has to go home. Objective Vital Signs Date Time Temp Pulse Resp B/P (MAP) Pulse Ox O2 Delivery O2 Flow Rate FiO2 08/13/17 00:00 98.2 78 18 114/71 (85) 99 08/12/17 20:00 97.5 78 18 118/61 (80) 96 08/12/17 19:17 96 Nasal Cannula 2.00 08/12/17 17:04 96.9 77 16 113/56 (75) 96 08/12/17 14:30 97.2 74 16 102/58 (73) 92 08/12/17 13:00 97.2 84 16 110/78 (89) 97 08/12/17 11:26 18 08/12/17 10:00 98.5 89 16 132/62 (85) 94 I/O 08/12/17 08/12/17 08/12/17 08/13/17 08/13/17 08/13/17 07:00 15:00 23:00 07:00 15:00 23:00 Intake Total 720 ml 1125 ml 340 ml Output Total 700 ml 300 ml 600 ml Balance -700 ml 420 ml 525 ml 340 ml Intake Oral 120 ml 420 ml 240 ml IV Total 705 ml 100 ml Other 600 ml Output Urine Total 700 ml 300 ml 600 ml # Voids 3 # Bowel Movements 0 Result Diagram: 08/11/17 0639 08/11/17 0639 Objective Remarks right foot and postop dressing, otherwise patient lying in bed, no acute distress A/P Assessment and Plan (1) HTN (hypertension) ICD Code: I10 - Essential (primary) hypertension resuming home Lopressor (2) Cellulitis of right leg ICD Code: L03.115 - Cellulitis of right lower limb We'll continue with IV Azactam and vancomycin, podiatry following s/p bedside and OR debridement; cultures pending. Continue to follow with current antibiotics and podiatry on to manage wound VAC placement anticipated today. consulting ID for possibility of needing IV abx post discharge, d/w ID Addendum: PICC warranted per ID, order placed. needs outpt IV abx Masoodi,Armand Elvin MD Aug 13, 2017 09:58
[2017-08-13 12:00] VITALS: BP 141/79; PULSE 76; RESP 18; TEMP 96.7; O2SAT 95
[2017-08-13] MEDS ORDERED: VANCOMYCIN INJ 1,000 MG in SODIUM CHLOR 0.9% 250 ML INJ 250 ML IV SCH (12:00)
[2017-08-13] MEDS: METOPROLOL TARTRATE 50 MG TAB PO SCH ×2 (12:32→22:27)
[2017-08-13] MEDS ORDERED: PHARMACY ORDERED LAB ONE (15:45)
[2017-08-13 16:00] VITALS: BP 132/70; PULSE 72; RESP 16; TEMP 96; O2SAT 96
--- NOTE | 2017-08-13 17:02 | HHI.FF ---
Face to Face Verification Diagnosis: (1) Cellulitis of right leg Physical Therapy Order: Evaluate and Treat, Improve ambulation, Strength and gait training Home Health Nursing Order: Medical education Signs/symptoms of disease process Medication education-adverse effect Wound care and dressing changes Nursing assessment with vital signs I have seen patient Prisca Luis on 08/13/17. My clinical findings support the need for the requested home health care services because: Limited ability to care for self I certify that my clinical findings support that this patient is homebound because: Unsteady gait/balance Vanessa Cleveland Aug 13, 2017 17:02
--- NOTE | 2017-08-13 17:43 | HHI.FF ---
Infusion Therapy Location of Infusion Therapy: Home Health Care IV Infusion Order Patient Information Patient Weight 60.2 kg Diagnosis: (1) Cellulitis of right leg Diagnosis Abscess R leg. Coded Allergies: amoxicillin (Unverified Allergy, Unknown, 08/12/17) penicillin G (Unverified Allergy, Unknown, PT UNSURE OF REACTION, 08/12/17) Administer Medication Vancomycin 1 gram IV q 24 hours Stop Treatment: Aug 27, 2017 Additional Information Venous access: PICC Line Additional Instructions [x] Peripheral flush and dressing changes per protocol [x] Implanted port and central power lineman technician: * Implanted port: 10 ml Normal Saline followed by 5 ml Heparin 100 units/ml Heparin flush after each use and monthly to maintain. [] May leave port accessed during therapy. [] May leave peripheral site accessed for duration of therapy. [x] If patient has SOB or respiratory distress, check oxygen saturation. If less than 90% or clinical signs of respiratory distress, administer oxygen at 2 L/min. via nasal cannula and notify physician. [x] Anaphylaxis/Reaction orders: * Stop infusion. * Keep IV line open with saline flush. * Notify physician. * Monitor vital signs every 15 minutes until symptoms resolve. * Check Oxygen saturation; Oxygen at 2 L/min. via nasal cannula if less than 90% or clinical signs of respiratory distress. * Administer diphenhydramine (Benadryl) 25 mg IV STAT, (unless patient has received as pre-med). May repeat once, if necessary. * Solu-Cortef 250 mg IVP over 30-60 seconds, use 100 mg vials for each dissolution. * Epinephrine (1mg/1 ml) 0.3 mg subcutaneously or IVP now with any signs of respiratory distress. * Check with physician for new additional pre-med orders if patient is re- challenged or re-treated. [x] May remove PICC line when treatment complete, after confirming with Physician. [x] If the patient is admitted to the hospital, the ED, or transferred via [facility] , complete transfer form including medication reconciliation order sheet. Laboratory Tests Weekly Labs: BMP, Vancomycin Trough Additional Information Fax labs to Dr. Mae Arnold Mae MD Aug 13, 2017 17:43
--- NOTE | 2017-08-13 17:46 | HHI.IDPN ---
Note Infectious Disease Note ID Consult. Patient seen and examined and full consult dictated. Orders written Infusion form completed. Can be discharged from ID standpoint when arrangements are made for home care. Vital Signs Date Time Temp Pulse Resp B/P (MAP) Pulse Ox O2 Delivery O2 Flow Rate FiO2 08/13/17 12:00 96.7 76 18 141/79 (99) 95 08/13/17 09:30 96.9 74 16 142/79 (100) 08/13/17 00:00 98.2 78 18 114/71 (85) 99 08/12/17 20:00 97.5 78 18 118/61 (80) 96 08/12/17 19:17 96 Nasal Cannula 2.00 Arnold Mae MD Aug 13, 2017 17:46
[2017-08-13] MEDS: VANCOMYCIN INJ 1,000 MG in SODIUM CHLOR 0.9% 250 ML INJ 250 ML IV SCH (17:59)
--- NOTE | 2017-08-13 18:24 | MB ---
cc: VALENCIA MAE MD DATE OF CONSULTATION 08/13/[address] Carrion REASON FOR CONSULTATION Foot infection. HISTORY OF PRESENT ILLNESS This is an 82 year old white female who was admitted to the hospital after she presented with pain and swelling of her right leg at the ankle. The patient fell approximately two weeks ago and injured her right ankle and also she injured her right groin and coccyx bone and she has an ulcer at the right thigh. She was evaluated by her primary physician and was given on oral antibiotic the day prior to coming to the emergency department. The patient was evaluated with an x-ray of the ankle which showed acute soft tissue swelling . She subsequently underwent MRI of the ankle which showed a soft tissue abscess on the medial thigh measuring in excess 6 cm or also soft tissue inflammation about the anterior and medial soft tissues. There was no signal abnormality to suggest osteomyelitis. The patient underwent I & D of the abscess and a culture was taken and the culture came back with Group A beta strep. She has been on antibiotics with Aztreonam and vancomycin. She is ALLERGIC TO PENICILLIN AND AMOXICILLIN. Culture came back showing group A beta strep. The patient had low grade fever of 100.1 degrees. She states that she had some chills and she may have had fever before admission, but she could not read the thermometer which used for her temperature. The pain in the coccyx and right groin resolved. She continues to have some pain in the right ____ region. This consultation is requested for antibiotic management. The patient is due to have a wound VAC applied to the wound. She has no other complaints. PAST MEDICAL HISTORY 1. Hypertension, 2. Gastroesophageal reflux disease, 3. Anxiety disorder 4. Hyperlipidemia 5. Skin cancer removed from the right leg three months ago ALLERGIES PENICILLIN AMOXICILLIN MEDICATIONS 1. Vancomycin. 2. Aztreonam. 3. Pepcid. 4. Lopressor. 5. Lexapro 6. Lactinex. 7. Cozaar 8. MiraLax. 9. [place] 7.5 p.r.n. 10. Milk of magnesia. 11. Prednisolone eye drops. SOCIAL HISTORY The patient is . No tobacco. No alcohol. No illicit drugs. FAMILY HISTORY Noncontributory. REVIEW OF SYSTEMS Negative on 10-point review except for that mentioned in history of present illness. PHYSICAL EXAMINATION GENERAL: This is a well-developed slender female in no acute distress. She is awake, alert and oriented. VITAL SIGNS: Temperature 96.7, BP 141/79, respirations 18, heart rate 76. HEENT: The head is atraumatic. Extraocular movements grossly intact, pupils reactive to light. No icterus. Oropharynx mucosa moist. NECK: Supple. No adenopathy or swelling. LUNGS: Clear breath sounds HEART: Regular S1 and S2 without murmurs. ABDOMEN: Soft, nontender. Bowel sounds normoactive. RECTAL: Not performed. EXTREMITIES: The right leg has the postsurgical ulcerated wound at the aspect of the ankle posteriorly. This has purulent drainage coming from the wound which has saturated the dressing. There is suture in place. There is mild erythema at the location. There is mild erythema at the lateral aspect of the ankle at the other side of the wound as well. There is trace edema of the dorsum of the foot. The right lateral tibia around midway has an open ulceration around the size of a quarter coin which has clean base, beefy red tissue and no drainage. The patient has varicosities of the right lower extremity. SKIN: No diffuse rash. NEUROLOGIC: No gross focal findings. PSYCHIATRIC: The patient is calm and cooperative. LABORATORY DATA WBC 10.6, platelet count 211, 88% neutrophils, hemoglobin 10.5. Creatinine 0.68, BUN 18, sodium 133. Vanco trough level pending. IMPRESSION 1. Right ankle wound infection. 2. Right ankle abscess due to group A beta strep. Patient is status post debridement. 3. 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 RECOMMENDATIONS Continue vancomycin intravenous for two week duration. The nature of the wound and location will likely be difficult to resolve with oral antibiotics in this patient who has difficulty with wound healing. I will order vancomycin so it can be given as an outpatient with home health care. Vancomycin monitoring and labs will be ordered as well. The patient is due to have wound VAC placed on the wound and she can follow up with wound care and Podiatry after discharge. Thank you this consultation. The patient's progress will be followed and further recommendations will be given upon followup if she is still in the hospital and needs further ID assistance. Otherwise, once arrangements are made for the wound VAC and antibiotics she can be discharged. Valencia Mae MD FD/ /5:24 PM /6:03 PM
[2017-08-13] MEDS: ENOXAPARIN SODIUM 40 MG/0.4 ML SYRINGE SQ SCH (19:20)
--- NOTE | 2017-08-13 19:24 | MP ---
cc: ROSEANNA LI YAIMA DATE OF SURGERY: 08/12/2017. INDICATIONS FOR THE PROCEDURE: This patient presented to the emergency department with worsening erythema and edema to the right lower extremity. She was developing cellulitis and was starting to feel ill. It was noted on MRI that she had an abscess in the medial aspect of the medial Achilles tendon area. She has a history of an excision of a skin cancer to the lateral aspect of the right calf area as well and it was concerning it communicates medially. The MRI did not show any conclusive evidence of this, but I did discuss it with the patient and she would likely benefit from incision and drainage of the abscess to the right ankle with debridement of ulcer to the right lower leg to see if it communicates, take cultures and figure out if there is a better antibiotic for her to be on based on these cultures for further treatment. We discussed that she would likely need a wound VAC and that this was required for the surgery to happen in order to salvage her limb it would likely decline in condition if she refused surgery. She agreed to move forward with surgery. DESCRIPTION OF THE PROCEDURE IN DETAIL: She was seen in preop holding by myself, nursing staff and anesthesia where the correct patient, side and site were all confirmed to be correct in the right lower extremity. She was taken back to the surgical suite, placed in supine position where the right lower extremity was prepped and draped in normal sterile fashion. Following this, timeouts were performed as per facility protocol. The right leg was prepped and draped in normal sterile fashion and attention was directed to the medial aspect of the right ankle where a circular necrotic area was noted medial to the Achilles tendon insertion area and an incision was made in this necrotic circular area and purulent material was released from the abscessed area continuing that incision that was made approximately 3 cm in length proximally from the area along the medial Achilles tendon. Upon exploration of the abscess, it did probe approximately 3 cm at 12 o'clock and did not appear to communicate posteriorly or laterally to the lateral wound on the calf. No necrotic tissue was noted throughout the wound, it was just on the original surface prior to incision. All this excisional debridement was performed of the necrotic tissue on the surface with a #15 blade rongeur and curettage of purulent debris throughout the channel of the abscess followed by irrigation with 9 liters normal sterile saline and a wound remained to the medial aspect of the Achilles area measuring approximately 3 cm x 3.5 cm x 1 cm in depth with healthy bleeding granular base and no remaining purulent or necrotic debris. The incision line was closed with 2-0 nylon followed by packing with half-inch Iodoform gauze, Xeroform to the wound, 4x4s, cast padding and KEITH bandage. The right lateral calf wound was also addressed and it measured approximately 1.5 cm in diameter and was down to subcutaneous tissue. Proximally 0.2 in depth. It did not communicate to the lateral abscessed area. Excisional debridement was performed with a 15 blade and curette of fibrotic material down to healthy bleeding subcutaneous tissue followed by irrigation and a dressing consisting of Xeroform, 4x4's, cast padding and KEITH bandage. The patient tolerated the procedure and the anesthesia well without complications and was taken back to the post-anesthesia care unit with vital signs stable and vascular status intact to the right lower extremity. She will be weightbearing as tolerated in a fracture boot and I will order wound VAC tomorrow. Continue IV antibiotics and await deep cultures. Case management consult was ordered and wound VAC orders were filled out and placed in the chart. She will follow up in clinic with me in two weeks after discharge where we will assess the wound for graft in the coming weeks to months. SURGEON: Roseanna Li DPM. PRESIDENT: Staff. PREOPERATIVE DIAGNOSIS: 1. Abscess right ankle. 2. Ulcer right lateral calf. POSTOPERATIVE DIAGNOSIS: 1. Abscess right ankle. 2. Ulcer right lateral calf. OPERATIVE PROCEDURE PERFORMED: 1. Incision and drainage of abscess right medial ankle. 2. Excisional debridement of ulcer right lateral calf. PATHOLOGY: Culture of right medial ankle abscess. ESTIMATED BLOOD LOSS: Minimal. ANESTHESIA: General endotracheal anesthesia. TOURNIQUET TIME: No tourniquet utilized. COMPLICATIONS: None. CONDITION: Stable to post-anesthesia care unit. DISPOSITION: Weightbearing as tolerated to the right lower extremity and surgical boot. Continue IV antibiotics and await deep cultures. renewals manager consulted to arrange wound VAC as outpatient prior to discharge. Nursing will apply wound VAC tomorrow per orders in the chart and she will follow up with me in two weeks for assessment of the wound to assess for graft in the coming weeks to months. Roseanna MARTE/HEMANTH /8:24 AM /6:31 PM
[2017-08-13 20:00] VITALS: BP 138/76; PULSE 93; RESP 20; TEMP 98.7; O2SAT 93
[2017-08-13] MEDS ORDERED: MELATONIN 5 MG TAB PO ONE (21:45)
--- NOTE | 2017-08-13 21:47 | HHI.FF ---
Infusion Therapy Location of Infusion Therapy: Home [facility] IV Infusion Order Patient Information Patient Weight 60.2 kg Diagnosis: (1) Cellulitis of right leg Diagnosis Abscess r foot Coded Allergies: amoxicillin (Unverified Allergy, Unknown, 08/12/17) penicillin G (Unverified Allergy, Unknown, PT UNSURE OF REACTION, 08/12/17) Administer Medication Vancomycin 1.5 grams IV q 24 hours Stop Treatment: Aug 27, 2017 Additional Information Venous access: PICC Line Additional Instructions [x] Peripheral flush and dressing changes per protocol [x] Implanted port and central electric power line examiner: * Implanted port: 10 ml Normal Saline followed by 5 ml Heparin 100 units/ml Heparin flush after each use and monthly to maintain. [] May leave port accessed during therapy. [] May leave peripheral site accessed for duration of therapy. [x] If patient has SOB or respiratory distress, check oxygen saturation. If less than 90% or clinical signs of respiratory distress, administer oxygen at 2 L/min. via nasal cannula and notify physician. [x] Anaphylaxis/Reaction orders: * Stop infusion. * Keep IV line open with saline flush. * Notify physician. * Monitor vital signs every 15 minutes until symptoms resolve. * Check Oxygen saturation; Oxygen at 2 L/min. via nasal cannula if less than 90% or clinical signs of respiratory distress. * Administer diphenhydramine (Benadryl) 25 mg IV STAT, (unless patient has received as pre-med). May repeat once, if necessary. * Solu-Cortef 250 mg IVP over 30-60 seconds, use 100 mg vials for each dissolution. * Epinephrine (1mg/1 ml) 0.3 mg subcutaneously or IVP now with any signs of respiratory distress. * Check with physician for new additional pre-med orders if patient is re- challenged or re-treated. [x] May remove PICC line when treatment complete, after confirming with Physician. [x] If the patient is admitted to the hospital, the ED, or transferred via [facility] , complete transfer form including medication reconciliation order sheet. Laboratory Tests Weekly Labs: Vancomycin Trough Additional Information Fax lab results to Dr Mae Fax number [phone]. BMP q 3 days while on Vancomycin. Arnold Mae MD Aug 13, 2017 21:47
[2017-08-13] MEDS ORDERED: LORA-392 PO (22:20)
[2017-08-13] MEDS ORDERED: LORazepam 0.5 MG TAB PO ONE (22:30)
[2017-08-14] VITALS: BP 146/82; PULSE 86; RESP 18; TEMP 97.5; O2SAT 96
[2017-08-14] MEDS: SODIUM CHLOR 0.9% 1000 ML INJ 1,000 ML IV SCH ×2 (03:00→09:30)
[2017-08-14] MEDS: ACETAMINOPHEN/HYDROcodone 325 MG/7.5 MG TAB PO PRN (05:38)
[2017-08-14 07:35] LABS: BICARBONATE 26.6 MEQ/L (21.0-32.0); CALCIUM 7.1 MG/DL (8.5-10.1); CREATININE 0.57 MG/DL (0.50-1.00)
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
[2017-08-14 07:50] VITALS: BP 142/75; PULSE 84; RESP 20; TEMP 98.7; O2SAT 95
[2017-08-14 08:08] LABS: CALCIUM-PROTEIN CORRECTED 7.8 MG/DL (8.5-10.1); TOTAL PROTEIN 5.8 GM/DL (6.4-8.2)
[2017-08-14] MEDS: SODIUM CHLORIDE 0.9% FLUSH 10 ML FLUSH IV FLUSH SCH (09:00)
[2017-08-14] MEDS: POLYETHYLENE GLYCOL 17 GM PKG PO SCH (09:00)
[2017-08-14] MEDS: prednisoLONE ACETATE 1% OPHT SUSP 5 ML BTL LEFT EYE SCH ×2 (09:43→14:27)
[2017-08-14] MEDS: LOSARTAN 50 MG TAB PO SCH (09:44)
[2017-08-14] MEDS: METOPROLOL TARTRATE 50 MG TAB PO SCH (09:44)
[2017-08-14] MEDS: FAMOTIDINE 20 MG TAB PO SCH (09:44)
[2017-08-14] MEDS: LACTOBACILLUS ACIDOPHILUS TAB PO SCH (09:44)
[2017-08-14] MEDS: ESCITALOPRAM OXALATE 20 MG TAB PO SCH (09:44)
[2017-08-14] MEDS ORDERED: NORC5TAB PO (10:09)
--- NOTE | 2017-08-14 10:13 | RADRPT ---
EXAM DATE/TIME: 08/14/2017 09:35 [facility] COMPARISON: No previous studies available for comparison. INDICATIONS : PICC line placement. MEDICAL HISTORY : Hypercholesterolemia. Hypertension. Gastroesophageal reflux disease. SURGICAL HISTORY : Tonsillectomy. ENCOUNTER: Initial ACUITY: 4 - 6 days PAIN SCORE: 0/10 LOCATION: Bilateral chest FINDINGS: There is a PICC line in place from the right arm with the tip overlying the right atrium. The heart s ize is enlarged. The lungs are show diffuse increased interstitial markings. There is further increas ed density at the bases bilaterally. There is a dextrocurvature of the thoracic spine. CONCLUSION: Cardiomegaly with diffuse increased interstitial markings likely related to CHF. The increased densit y at the bases is likely related to some degree of lower lobe consolidation, atelectasis, or mild eff usions. Kenny García MD on August 14, 2017 at 10:10 Board Certified Radiologist. This report was verified electronically.
[2017-08-14] MEDS ORDERED: WALKER WHEELS/F1 MIS (10:17)
--- NOTE | 2017-08-14 10:21 | HHI.DS ---
Discharge Summary Admission Date Aug 10, 2017 at 16:20 Admitting Diagnosis CELLULITIS R LEG (1) HTN (hypertension) ICD Code: I10 - Essential (primary) hypertension (2) Cellulitis of right leg ICD Code: L03.115 - Cellulitis of right lower limb Status: Acute Procedures Incision and drainage and debridement Brief History - From Admission Patient is an 82-year-old female with an acute episode of right leg pain and swelling which was severe enough to come to the emergency room. The pain occurred 2 days ago and she called her primary care doctor and did receive a prescription for Keflex but noted that increasing pain continued and she developed a bullous lesion in the medial ankle. She has no history of DVTs ultrasounds here been negative. Patient has been in wound care clinic with a right lateral shallow wound that appears to be healing quite well otherwise. The pain is intense and improved with elevation. She reports fevers and chills at home. Here she has been hypotensive. Patient is admitted for acute right lower show any infection with failed outpatient therapy CBC/BMP: 08/11/17 0639 08/14/17 0638 Significant Findings Laboratory Tests Test 08/13/17 17:00 08/14/17 06:38 Vancomycin Level Trough 3.5 MCG/ML (5.0-10.0) Total Protein 5.8 GM/DL (6.4-8.2) Calcium Level 7.1 MG/DL (8.5-10.1) Protein Corrected Calcium 7.8 MG/DL (8.5-10.1) PE at Discharge GENERAL: This is a well-nourished, well-developed patient, complaining of pain postoperatively from her foot CARDIOVASCULAR: Regular rate and rhythm without murmurs, gallops, or rubs. RESPIRATORY: Clear to auscultation. Breath sounds equal bilaterally. No wheezes , rales, or rhonchi. GASTROINTESTINAL: Abdomen soft, non-tender, nondistended. Normal active bowel sounds MUSCULOSKELETAL: Saleem wrap status post surgical I&D right lower extremity, other 3 extremities without clubbing, cyanosis, or edema. NEURO: Alert & Oriented x4 to person, place, time, situation. Moves all ext x4 Hospital Course Patient admitted with right ankle abscess with lower extremity from colitis status post incision and drainage and debridement wound VAC IV antibiotic, ID consulted, patient will be on IV antibiotic outpatient and to follow-up with podiatry in 1 week [id number] encounter performed with the patient on discharge day, as well as physical exam, summary of hospitalization course and postdischarge plan has been D/W the patient. D/W nurse D/W casework manager. Discharge medications reviewed and printed and signed, post discharge follow up visit with PCP and other specialist as well as Brief hospital course and discharge summary has been placed. Pt Condition on Discharge: Fair Discharge Disposition: Disch w/ Home Health Serv Discharge Time: > 30 minutes Discharge Instructions DIET: Follow Instructions for: Heart Healthy Diet, Diabetic Diet Activities you can perform: See Additionl Instruction Other Activity Instructions: per pt New Medications: Hydrocodone-Acetaminophen ([place]) 5 Mg-325 Mg Tab 1 TAB PO Q4H PRN for PAIN, #15 TAB 0 Refills Walker with Front Wheels (Walker with Front Wheels) 1 Mis Mis EA .XX DIRECTED, #1 0 Refills Continued Medications: Ascorbic Acid ER (Vitamin C ER) 500 Mg Ok 1000 MG PO DAILY for Nutritional Supplement, TAB 0 Refills Aspirin (Aspirin Low Dose) 81 Mg Chew 81 MG CHEW DAILY, TAB 0 Refills Bromfenac Sodium (Ophth) (Bromsite) 0.075 % Velasquez 1 DROP LEFT EYE BID Escitalopram (Escitalopram) 20 Mg Tab 20 MG PO DAILY, #30 TAB 0 Refills Fish Oil-Cholecalciferol (Fish Oil + D3) 1,200-1,000 Mg-Unit Cap 1 CAP PO DAILY for Nutritional Supplement, #30 CAP 0 Refills Glucosamine-Chondroitin (Glucosamine-Chondroitin) 500-400 Mg Tab 1 TAB PO DAILY for Herbal Supplements, TAB 0 Refills Lactobacillus Acidophilus (Probiotic) 10 Billion Cell Cap 1 CAP PO DAILY for Nutritional Supplement, #90 CAP 0 Refills Lorazepam (Ativan) 0.5 Mg Tab 0.5 MG PO BID PRN for ANXIETY, TAB 0 Refills Losartan (Losartan) 50 Mg Tab 50 MG PO DAILY for Blood Pressure Management, #30 TAB 0 Refills Metoprolol Tartrate (Metoprolol Tartrate) 50 Mg Tab 50 MG PO BID, #60 TAB 0 Refills Prednisolone Acetate Opth 1% (Pred Forte Opth 1%) 1% Susp 1 DROP LEFT EYE QID for Inflammation, #1 BOTTLE 0 Refills Ranitidine (Ranitidine) 150 Mg Tab 150 MG PO BID for Heartburn Management, #60 TAB 0 Refills Jasvir Lynn MD Aug 14, 2017 10:21
[2017-08-14 11:50] VITALS: BP 140/81; PULSE 77; RESP 20; TEMP 97.8; O2SAT 91
[2017-08-14 15:00] VITALS: BP 147/78; PULSE 92; RESP 20; TEMP 98.7; O2SAT 91
[2017-08-15] MEDS ORDERED: PHARMACY ORDERED LAB ONE (23:45)
== END 2017-08-14 16:59 | disposition home health service (06) | DRG 572 ==
LOC: PHED 13:51 → PHEDA 16:20 → PH3B 17:29
PROVIDERS: ADMIT Hospitalist; ATTEND Hospitalist
PROC: 0H9MXZX Drainage of Right Foot Skin, External Approach, Diagnostic (ICD-10-PCS; 2017-08-10)
PROC: 0JBN0ZZ Excision of Right Lower Leg Subcutaneous Tissue and Fascia, Open Approach (ICD-10-PCS; 2017-08-12)
PROC: 0JBQ0ZZ Excision of Right Foot Subcutaneous Tissue and Fascia, Open Approach (ICD-10-PCS; principal; 2017-08-12 07:15)
DX: L02.415 Cutaneous abscess of right lower limb (principal); I95.9 Hypotension, unspecified; B95.0 Streptococcus, group A, as the cause of diseases classified elsewhere; I10 Essential (primary) hypertension; L03.115 Cellulitis of right lower limb; K21.9 Gastro-esophageal reflux disease without esophagitis; F41.9 Anxiety disorder, unspecified; E78.5 Hyperlipidemia, unspecified; M81.0 Age-related osteoporosis without current pathological fracture; M19.90 Unspecified osteoarthritis, unspecified site; Z91.81 History of falling; Z88.0 Allergy status to penicillin; Z85.820 Personal history of malignant melanoma of skin
CPT/HCPCS: 36569; 71045; 73610; 73723; 76937; 80048; 80053; 80202; 81001; 83605; 84155; 85025; 87015; 87040; 87070; 87086; 87102; 87116; 87205; 87206; 93971; 96365; 96367; A9579; J1650; J3010; J3370; J7030; J7050; L2114